=== PATIENT | male | born 1935 | race Caucasian/White ===

== ENCOUNTER 2016-06-04 06:56 | Day surgery (SDC) | payer MEDICARE, OTHER ==
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
[2016-06-04] MEDS ORDERED: PROMETHAZINE HCL INJ 25 MG/1 ML VIAL ONE (07:37)
[2016-06-04] MEDS ORDERED: GLYCOPYRROLATE INJ 0.4 MG/2 ML VIAL ONE (07:37)
[2016-06-04] MEDS ORDERED: LIDOCAINE 2% JELLY 30 ML TUBE ONE (07:37)
[2016-06-04] MEDS ORDERED: ONDANSETRON HCL INJ/PF 4 MG/2 ML SDV ONE (07:37)
[2016-06-04] MEDS ORDERED: NALOXONE HCL INJ/PF 0.4 MG/1 ML SDV ONE (07:37)
[2016-06-04] MEDS ORDERED: GLUCAGON,HUMAN RECOMB 1 MG INJ ONE (07:38)
[2016-06-04] MEDS ORDERED: MIDAZOLAM 2 MG/2 ML INJ ONE (07:38)
[2016-06-04] MEDS ORDERED: FLUMAZENIL INJ 0.5 MG/5 ML VIAL IV ONE (07:38)
[2016-06-04] MEDS ORDERED: EPINEPHRINE INJ 1 MG/10 ML DISP.SYRIN ONE (07:38)
[2016-06-04] MEDS: FENTANYL CITRATE INJ/PF 100 MCG/2 ML AMPUL ONE ×2 (08:17→08:22)
--- NOTE | 2016-06-04 09:52 | DISCHARGE SUMMARY E ---
Discharge Summary NAME: ROBERT HOWARD : 1935 AGE: 81Y ADMITTED: 06/04/2016 DISCHARGED: 06/04/2016 PROCEDURE: Colonoscopy and biopsy. FINAL DIAGNOSES: 1. External hemorrhoids, mild. 2. Diminutive rectosigmoid polyps. HISTORY OF PRESENT ILLNESS: A 81-year-old gentleman presented with history of polyps. Underwent colon screening. It shows benign looking rectosigmoid polyps. DISCHARGE PLAN: Soft diet. Continue medications. Patient does complain of constipation. He takes Carafate, Dulcolax, Lipitor, Lyrica, Micardis, MiraLax, Nexium, Tylenol #3, that is acetaminophen with codeine. Recommend followup colonoscopy in 3 years. Soft bland diet for today. Awaiting biopsy results. Consider age and followup colonoscopy in 3 years. DICTATING PHYSICIAN: FRIDA LALA M.D. [id number] PHY#: [id number] ID: [id number] JOB#: [id number] ACCT: [id number] cc:[facility] FRIDA LALA M.D. >
--- NOTE | 2016-06-04 09:53 | OPERATIVE REPORT E ---
Operative Report NAME: ROBERT HOWARD : 1935 AGE: 81Y DATE OF SURGERY: 06/04/2016 ROOM: PREOPERATIVE DIAGNOSIS: Colon screening. POSTOPERATIVE DIAGNOSIS: Diminutive rectosigmoid polyps. PROCEDURE: Colonoscopy. SURGEON: FRIDA LALA M.D. ANESTHESIA: Versed 2 mg and Fentanyl 100 mcg. TISSUE REMOVED OR ALTERED: Biopsy of diminutive rectosigmoid polyps. PROCEDURE: Rectal exam external hemorrhoids, mild diminutive rectosigmoid polyps, benign, biopsy obtained. Sigmoid, descending colon normal. Transverse colon large amount of liquid stool, some redundancy, no abnormalities. Ascending colon normal. Cecum normal. Scope withdrawn through cecum, ascending, transverse, descending, and sigmoid all the way to the rectum. CONCLUSIONS: 1. Diminutive rectosigmoid polyps. 2. Moderate amount of stool in the transverse colon. 3. External hemorrhoids. PLAN: 1. Soft diet today. 2. Hold aspirin and nonsteroidals for 3 days. 3. Awaiting biopsy results. 4. Consider follow-up colonoscopy in 3 years. DICTATING PHYSICIAN: FRIDA LALA M.D. [id number] [id number] PHY#: [id number] ID: [id number] JOB#: [id number] ACCT: [id number] cc:[facility] FRIDA GREGORY M.D. >
[2016-06-04 12:25] VITALS: BP 117/69
== END 2016-06-04 09:55 | disposition home or self-care (01) ==
LOC: END 06:56
PROVIDERS: ATTEND Specialist
PROC: 0DBP8ZX Excision of Rectum, Via Natural or Artificial Opening Endoscopic, Diagnostic (ICD-10-PCS; principal; 2016-06-04 08:00)
DX: Z12.11 Encounter for screening for malignant neoplasm of colon (principal); D12.7 Benign neoplasm of rectosigmoid junction; K64.4 Residual hemorrhoidal skin tags; Z79.82 Long term (current) use of aspirin
CPT/HCPCS: 45380; 88305 ×2; J2250; J3010; J1610; J0171; J2310; J2405; J2550; J3490

== ENCOUNTER 2017-02-19 14:53 | Emergency (ER) | payer MEDICARE, OTHER ==
--- NOTE | 2017-02-19 16:20 | ER Document Report ---
ED General - General Chief Complaint: Leg Pain Stated Complaint: LEG PAIN Time Seen by Provider: 02/19/17 16:18 Mode of Arrival: Medic - via wheelchair Information source: Patient Notes: Patient is a 81-year-old male with past medical history of hypertension, urinary incontinence, chronic back pain, reflux, hyperlipidemia who presents via EMS complaining of low back pain bilateral hip pain that radiates down both legs. He describes the pain as a burning sensation that is localized to the posterior portions of both legs. He states that he is currently taking Tylenol , Tylenol with codeine and Lyrica for his pain and he saw his primary care doctor today who told him he will have to be referred to a pain management clinic for further medications. 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 He denies any recent falls or injuries. He denies any fever, chills, abdominal pain, numbness, tingling, unilateral weakness, bladder incontinence that is worsening, bowel incontinence, saddle paresthesias. TRAVEL OUTSIDE OF THE [place] IN LAST 30 DAYS: No - Related Data Allergies/Adverse Reactions: No Known Allergies Allergy (Verified 06/04/16 07:09) Past Medical History - General Information source: Patient - Social History Smoking Status: Smoker,Current Status Unk Family History: Reviewed & Not Pertinent - Past Medical History Cardiac Medical History: Reports: Hx Coronary Artery Disease, Hx Hypertension Denies: Hx Heart Attack Pulmonary Medical History: Reports: Hx Pneumonia - 2011 Denies: Hx Asthma, Hx Bronchitis, Hx COPD Neurological Medical History: Denies: Hx Cerebrovascular Accident, Hx Seizures Renal/ Medical History: Reports: Hx Renal Insufficiency. Denies: Hx Peritoneal Dialysis GI Medical History: Reports: Hx Gastritis, Hx Gastroesophageal Reflux Disease, Hx Hiatal Hernia Musculoskeltal Medical History: Denies Hx Arthritis Psychiatric Medical History: Reports: Hx Depression Past Surgical History: Reports: Hx Cholecystectomy - Immunizations Hx Diphtheria, Pertussis, Tetanus Vaccination: Yes Hx Pneumococcal Vaccination: 05/18/13 Review of Systems - Review of Systems Constitutional: See HPI EENT: No symptoms reported Cardiovascular: No symptoms reported Respiratory: No symptoms reported Gastrointestinal: No symptoms reported Genitourinary: No symptoms reported Male Genitourinary: No symptoms reported Musculoskeletal: See HPI Skin: No symptoms reported Hematologic/Lymphatic: No symptoms reported Neurological/Psychological: See HPI Physical Exam - Notes Notes: PHYSICAL EXAM: CONSTITUTIONAL: Alert and oriented, well-appearing and in no acute distress. HENT: Normocephalic, atraumatic. Moist mucous membranes. EYES: Pupils equal round and reactive to light, EOM intact. Sclera anicteric, conjunctiva are normal. No entrapment. NECK: supple without lymphadenopathy. No midline tenderness or paraspinous muscle spasms. No step-offs or deformities. ROM intact. HEART: Regular rate and rhythm without murmurs. LUNGS: CTAB and equal. No wheezes, rales or rhonchi. GI: Normactive bowel sounds. Nontender, non-distended. No organomegaly. no CVAT. BACK: no midline tenderness, step-offs or deformities, no paraspinous spasm, 5+/ 5 strengths, DTRs 2+, SLR + (R>L). EXTREMITIES: bilateral hips tender to palpation over greater trochanteric regions, ROM limited secondary to pain. all other extremiites with normal range of motion, no pitting edema. No cyanosis. Cap Refill <3 seconds. NEURO: Cranial nerves grossly intact. Normal sensory/motor exams. Strength 4/5 and equal in both legs. PSYCH: Normal mood, normal affect. SKIN: Warm and dry. Normal turgor. No rashes or lesions noted. Course - Re-evaluation Re-evalutation: 02/19/17 16:20 Patient seen and examined. Feel this is chronic pain, denies any recent injury or fall. No changes to his pain. Neurovascular intact. No bowel or bladder incontinence, no saddle paresthesia -low suspicion for cauda equina syndrome, epidural abscess, spinal cord compression. he did see his primary today who told him next step was pain management. I explained he already had narcotic pain medication and that we could not add any additional pain medication to his current regimen. I would also be concerned with increase risk of falls with any stronger narcotic pain medication. Advised he must follow-up and establish with pain clinic. He is not a DM so I will add steroid medication to his regimen. Discussed return precautions. At this time, will discharge with return precautions and follow-up recommendations. Verbal discharge instructions given at the bedside and opportunity for questions given. Medication warnings reviewed. Patient is in agreement with this plan and has verbalized understanding of return precautions and the need for primary care follow-up in the next 24-72 hours. Discharge - Discharge Clinical Impression: Chronic low back pain with bilateral sciatica Qualifiers: Back pain laterality: bilateral Qualified Code(s): M54.42 - Lumbago with sciatica, left side; M54.41 - Lumbago with sciatica, right side; M54.41 - Lumbago with sciatica, right side; G89.29 - Other chronic pain; G89.29 - Other chronic pain Condition: Stable Disposition: HOME, SELF-CARE Additional Instructions: Chronic Pain Control Stress, inactivity, and depression make pain more severe regardless of the cause of the pain. Stress and poor physical condition can cause pain such as headaches and backache. Relaxation: Rest in a quiet place with your eyes closed for 20 minutes twice daily. Concentrate on a pleasant image, or simply "feel" your breathing. Clear your mind. Stress management: Deal with your "stressors." Either take action, or eliminate the stressor from your life. Don't let things hang over you. Accept those things you can't change. Nutrition: Eat small, balanced meals -- don't skip, don't overeat. Meals should be high-carbohydrate, low-sugar, low-fat. Exercise: Exercise helps painful conditions and eases stress. Get 30 minutes of moderate exercise, five days a week. Do an activity that does not flare your pain. Precautions: Pain which continues to disrupt daily activities, or which changes in nature, requires a medical evaluation. Pain Clinic referral is available. We do not manage chronic pain in the Emergency Department. We will try to appropriately help you through an acute flare of your chronic painful condition , but for on-going chronic pain that does not improve, you will need to see your private doctor or sandblaster paint sprayer. We do not provide repeated medication management of chronic painful conditions. If you wish, we can provide the name of local pain management physicians. Prescriptions: Prednisone [Deltasone 10 mg Tablet] 10 mg PO ASDIR PRN #21 tablet PRN Reason:
[2017-02-19 16:37] VITALS: BP 145/90
== END 2017-02-19 16:55 | disposition home or self-care (01) ==
LOC: ER 14:53
DX: M54.42 Lumbago with sciatica, left side (principal); M54.41 Lumbago with sciatica, right side; G89.29 Other chronic pain; I10 Essential (primary) hypertension; I25.10 Atherosclerotic heart disease of native coronary artery without angina pectoris; Z90.49 Acquired absence of other specified parts of digestive tract
CPT/HCPCS: 99283

== ENCOUNTER 2017-02-23 08:44 | Emergency (ER) | payer MEDICARE, OTHER ==
--- NOTE | 2017-02-23 09:21 | ER Document Report ---
ED General - General Chief Complaint: Pain All Over Stated Complaint: EAR PAIN Time Seen by Provider: 02/23/17 09:01 TRAVEL OUTSIDE OF THE [place] IN LAST 30 DAYS: No - HPI Patient complains to provider of: Burning pain Notes: Patient is coming in for evaluation of burning pain. Patient states burning pain ongoing for greater than a month. Patient states he has been evaluated by his primary care physician over the [facility] was recently seen here in ER and prescribed prednisone patient states was on oral narcotics and Lyrica patient has recently stopped his Lyrica after tapering down. Patient states burning pain continues and is worsened. Patient states has a appointment to see pain control. Denies any fevers chills nausea vomiting diarrhea. - Related Data Allergies/Adverse Reactions: No Known Allergies Allergy (Verified 02/23/17 09:02) Home Medications: Current Home Medications Docusate Sodium [Doc-Q-Lace] 1 cap PO DAILY 02/23/17 [History] Pantoprazole Sodium [Protonix] 40 mg PO DAILY 02/23/17 [History] Past Medical History - Social History Smoking Status: Never Smoker Chew tobacco use (# tins/day): No Frequency of alcohol use: None Drug Abuse: None Family History: Reviewed & Not Pertinent Patient has suicidal ideation: No Patient has homicidal ideation: No - Past Medical History Cardiac Medical History: Reports: Hx Coronary Artery Disease, Hx Hypercholesterolemia, Hx Hypertension Denies: Hx Heart Attack Pulmonary Medical History: Reports: Hx Pneumonia - 2011 Denies: Hx Asthma, Hx Bronchitis, Hx COPD Neurological Medical History: Denies: Hx Cerebrovascular Accident, Hx Seizures Renal/ Medical History: Reports: Hx Renal Insufficiency. Denies: Hx Peritoneal Dialysis GI Medical History: Reports: Hx Gastritis, Hx Gastroesophageal Reflux Disease, Hx Hiatal Hernia Musculoskeltal Medical History: Reports Hx Arthritis Psychiatric Medical History: Reports: Hx Depression Past Surgical History: Reports: Hx Cholecystectomy - Immunizations Hx Diphtheria, Pertussis, Tetanus Vaccination: Yes Hx Pneumococcal Vaccination: 05/18/13 Review of Systems - Review of Systems Constitutional: Other - Burning pain EENT: No symptoms reported Cardiovascular: No symptoms reported Respiratory: No symptoms reported Gastrointestinal: No symptoms reported Genitourinary: No symptoms reported Male Genitourinary: No symptoms reported Musculoskeletal: No symptoms reported Skin: No symptoms reported Hematologic/Lymphatic: No symptoms reported Neurological/Psychological: No symptoms reported Physical Exam - Vital signs Vitals: Temp Pulse Resp BP Pulse Ox 97.4 F 57 L 21 H 141/75 H 95 02/23/17 08:45 02/23/17 08:45 02/23/17 08:45 02/23/17 08:45 02/23/17 08:45 Interpretation: Normal - General General appearance: Appears well, Alert - HEENT Head: Normocephalic, Atraumatic Eyes: Normal Pupils: PERRL - Respiratory Respiratory status: No respiratory distress Chest status: Nontender Breath sounds: Normal Chest palpation: Normal - Cardiovascular Rhythm: Regular Heart sounds: Normal auscultation Murmur: No - Abdominal Inspection: Normal Distension: No distension Bowel sounds: Normal Tenderness: Nontender Organomegaly: No organomegaly - Back Back: Normal, Nontender - Extremities General upper extremity: Normal inspection, Nontender, Normal color, Normal ROM , Normal temperature General lower extremity: Normal inspection, Nontender, Normal color, Normal ROM , Normal temperature, Normal weight bearing. No: Hussein's sign - Neurological Neuro grossly intact: Yes Cognition: Normal Orientation: AAOx4 [place] Coma Scale Eye Opening: Spontaneous [place] Coma Scale Verbal: Oriented [place] Coma Scale Motor: Obeys Commands [place] Coma Scale Total: 15 Speech: Normal Motor strength normal: LUE, RUE, LLE, RLE Sensory: Normal - Psychological Associated symptoms: Normal affect, Normal mood - Skin Skin Temperature: Warm Skin Moisture: Dry Skin Color: Normal Course - Re-evaluation Re-evalutation: 02/23/17 14:27 Patient coming in for complaint of all over diffuse body burning pain ongoing for greater than a month. Vital signs otherwise stable. No signs of any critical pathology rashes on the patient's examination. Explained to patient that we can start him on Neurontin however highly recommend he follow-up with his primary care physician - Vital Signs Vital signs: Temp Pulse Resp BP Pulse Ox 97.2 F 58 L 18 123/79 91 L 02/23/17 09:28 02/23/17 09:28 02/23/17 09:28 02/23/17 09:28 02/23/17 09:28 Discharge - Discharge Clinical Impression: Burning pain Condition: Good Disposition: HOME, SELF-CARE Instructions: Chronic Pain Control ([facility]), Neuropathy ([facility]) Additional Instructions: At this time your physical examination is benign. Did not have an explanation for your burning pain. This is a chronic condition which is difficult to treat here in the ER. We will start her on gabapentin and Voltaren gel however complete treatment of her condition is going to come from seeing yourr family physician and also seeing pain management. Prescriptions: Diclofenac Sodium [Voltaren] 100 gm TP BID #1 tu Gabapentin [Neurontin 100 mg Capsule] 100 mg PO Q12 #60 capsule
[2017-02-23 09:31] VITALS: BP 123/79
== END 2017-02-23 09:29 | disposition home or self-care (01) ==
LOC: ER 08:44
DX: R20.8 Other disturbances of skin sensation (principal); R52 Pain, unspecified; I25.10 Atherosclerotic heart disease of native coronary artery without angina pectoris; I10 Essential (primary) hypertension
CPT/HCPCS: 99282

== ENCOUNTER 2017-05-28 07:52 | Day surgery (SDC) | payer MEDICARE, OTHER ==
[~2017-05-28 07:52] MED LIST: BUPIVACAINE HCL 0.75% INJ/PF (7.5 MG/1 ML) 10 ML SDV OD PRN; KETOROLAC TROMETHAMINE 0.45% 4 DROP/0.4 ML DROPERETTE OD PRN
[2017-05-28] MEDS ORDERED: EPINEPHRINE INJ/PF 1 MG/1 ML AMPULE ONE (08:26)
[2017-05-28] MEDS ORDERED: CHONDR SU A NA/HYALUR INTRAOC KIT (SURGICARE) ONE (08:26)
[2017-05-28] MEDS ORDERED: LIDOCAINE 1% INJ-PF (10 MG/ML) 30 ML SDV ONE (08:26)
[2017-05-28] MEDS: CYCLOPENTOLATE 0.2%/PHENYLEPHRINE 1% OPH SOLN 2 ML OD PRN ×3 (08:45→09:05)
[2017-05-28] MEDS: TROPICAMIDE 1% OPH SOLN 3 ML OD PRN ×3 (08:45→09:05)
[2017-05-28] MEDS: BESIFLOXACIN HCL 0.6% OPH SUSP 5 ML BOTTLE OD PRN ×3 (08:46→09:53)
[2017-05-28] MEDS: TETRACAINE HCL 0.5% OPH SOLN 2 ML OD PRN ×3 (08:46→09:25)
[2017-05-28] MEDS ORDERED: MIDAZOLAM 2 MG/2 ML INJ ONE (09:09)
[2017-05-28] MEDS ORDERED: FENTANYL CITRATE INJ/PF 100 MCG/2 ML AMPUL ONE (09:09)
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
--- NOTE | 2017-05-28 19:19 | [facility] OPERATIVE REPORT E ---
[facility] Operative Report NAME: ROBERT HOWARD AGE: 82Y DATE OF SURGERY: 05/28/2017 ROOM: PREOPERATIVE DIAGNOSES: 1. CATARACT, RIGHT EYE. 2. PUPIL MIOSIS, RIGHT EYE. POSTOPERATIVE DIAGNOSES: 1. CATARACT, RIGHT EYE. 2. PUPIL MIOSIS, RIGHT EYE. OPERATION: Complex cataract extraction with use of Malyugin ring due to poor pupillary dilation. SURGEON: ROJELIO JOSHI M.D. ANESTHESIA: Topical. PROCEDURE: After obtaining appropriate consent, the patient's right eye was prepped and draped in sterile fashion as well as the surgeon in a sterile manner and cataract surgery was started. First a paracentesis blade was used to make a small side-port incision. Viscoelastic was used to inflate the anterior chamber. Next a 2.4 mm incision was made with the paracentesis blade. A continuous capsulorrhexis incision was made using a cystotome and Utrata forceps. Following this hydrodissection was carried out to make the lens fully loose and mobile and it was rotated 90 degrees. Following this, a aswiwx-kgm-tlvcskz technique was used to phacoemulsify the lens with a CDE of 5.40. The remaining cortex was removed with irrigation/aspiration. Provisc was instilled into the capsular bag to inflate the bag. A SN60WF, 22.0 diopter lens was placed. The remaining viscoelastic material was removed with irrigation/aspiration. Following this, a 10-0 nylon suture was used to close the incision and it was found to be watertight. Vigamox was instilled in the eye and a protective shield was placed over the eye. The patient returned to the postoperative recovery in stable condition. Prior to making the capsulorrhexis, a Malyugin ring was inserted due to a very miotic pupil. This was removed at the end of the case. DICTATING PHYSICIAN: ROJELIO JOSHI M.D. [id number] [id number] PHY#: [id number] ID: [id number] JOB#: [id number] ACCT: [id number] cc:ROJELIO JOSHI M.D. >
== END 2017-05-28 10:38 | disposition home or self-care (01) ==
LOC: SC 07:52
PROVIDERS: ATTEND Internal Medicine
PROC: 08RJ3JZ Replacement of Right Lens with Synthetic Substitute, Percutaneous Approach (ICD-10-PCS; principal; 2017-05-28 09:30)
DX: H25.11 Age-related nuclear cataract, right eye (principal); H57.03 Miosis; I10 Essential (primary) hypertension; K21.9 Gastro-esophageal reflux disease without esophagitis; Z79.899 Other long term (current) drug therapy
CPT/HCPCS: 66982; V2632; J2250; J3490 ×2; A9270; J0171; J3010; 142

== ENCOUNTER 2017-06-25 11:18 | Day surgery (SDC) | payer MEDICARE, OTHER ==
[~2017-06-25 11:18] MED LIST changes: -BUPIVACAINE HCL 0.75% INJ/PF (7.5 MG/1 ML) 10 ML SDV OD PRN; +CHONDR SU A NA/HYALUR INTRAOC KIT (SURGICARE) ONE; +EPINEPHRINE INJ/PF 1 MG/1 ML AMPULE ONE; -KETOROLAC TROMETHAMINE 0.45% 4 DROP/0.4 ML DROPERETTE OD PRN; +KETOROLAC TROMETHAMINE 0.45% 4 DROP/0.4 ML DROPERETTE OS PRN; +LIDOCAINE 1% INJ-PF (10 MG/ML) 30 ML SDV ONE; +PHENYLEPHRINE/KETOROLAC 1%-0.3% 4 ML VIAL ONE
[2017-06-25] MEDS: TROPICAMIDE 1% OPH SOLN 3 ML OS PRN ×3 (11:34→12:04)
[2017-06-25] MEDS: CYCLOPENTOLATE 0.2%/PHENYLEPHRINE 1% OPH SOLN 2 ML OS PRN ×3 (11:34→12:04)
[2017-06-25] MEDS: BESIFLOXACIN HCL 0.6% OPH SUSP 5 ML BOTTLE OS PRN ×3 (11:35→12:42)
[2017-06-25] MEDS: TETRACAINE HCL 0.5% OPH SOLN 2 ML OS PRN ×3 (11:36→12:12)
[2017-06-25] MEDS ORDERED: MIDAZOLAM 2 MG/2 ML INJ ONE (11:51)
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
--- NOTE | 2017-06-25 16:44 | [facility] OPERATIVE REPORT E ---
[facility] Operative Report NAME: ROBERT HOWARD AGE: 82Y DATE OF SURGERY: 06/25/2017 ROOM: PREOPERATIVE DIAGNOSES: 1. CATARACT, LEFT EYE. 2. PUPIL MIOSIS OF THE LEFT EYE. POSTOPERATIVE DIAGNOSES: 1. CATARACT, LEFT EYE. 2. PUPIL MIOSIS OF THE LEFT EYE. OPERATION: Complex cataract extraction with use of Malyugin ring due to a very miotic pupil. SURGEON: ROJELIO JOSHI M.D. ANESTHESIA: Topical. TISSUE REMOVED OR ALTERED: PROCEDURE: After obtaining appropriate consent, the patient's left eye was prepped and draped in sterile fashion as well as the surgeon in a sterile manner and cataract surgery was started. First a paracentesis blade was used to make a small side-port incision. Viscoelastic was used to inflate the anterior chamber. Next a 2.4 mm incision was made with the paracentesis blade. A continuous capsulorrhexis incision was made using a cystotome and Utrata forceps. Following this hydrodissection was carried out to make the lens fully loose and mobile and it was rotated 90 degrees. Following this, a hsowqf-gop-zwulkth technique was used to phacoemulsify the lens with a CDE of 5.44. The remaining cortex was removed with irrigation/aspiration. Provisc was instilled into the capsular bag to inflate the bag. A SN60WF, 19.5 diopter lens was placed. The remaining viscoelastic material was removed with irrigation/aspiration. Following this, a 10-0 nylon suture was used to close the incision and it was found to be watertight. Vigamox was instilled in the eye and a protective shield was placed over the eye. The patient returned to the postoperative recovery in stable condition. DICTATING PHYSICIAN: ROJELIO JOSHI M.D. [id number] PHY#: [id number] ID: [id number] JOB#: [id number] ACCT: [id number] cc:ROJELIO JOSHI M.D. >
== END 2017-06-25 13:23 | disposition home or self-care (01) ==
LOC: SC 11:18
PROVIDERS: ATTEND Internal Medicine
PROC: 08RK3JZ Replacement of Left Lens with Synthetic Substitute, Percutaneous Approach (ICD-10-PCS; principal; 2017-06-25 13:00)
DX: H25.12 Age-related nuclear cataract, left eye (principal); H57.03 Miosis; I10 Essential (primary) hypertension; K21.9 Gastro-esophageal reflux disease without esophagitis; I51.9 Heart disease, unspecified; E78.00 Pure hypercholesterolemia, unspecified; Z88.2 Allergy status to sulfonamides; Z85.46 Personal history of malignant neoplasm of prostate; Z79.899 Other long term (current) drug therapy; Z87.891 Personal history of nicotine dependence
CPT/HCPCS: 66984; V2632; J2250; J3490 ×2; A9270; J0171; 160; C9447